=== PATIENT | female | born 1965 | race African-American/Black ===

== ENCOUNTER → 2017-03-30 | Outpatient (CLI) | payer OTHER ==
[~2017-03-30] MED LIST: CYCLOBENZAPRINE10 MG PO; IBUPROFEN 200200 M1 PO; NORCO 5-325 TA1 EACH PO; PRINIVIL20 M1 PO
== END ==
LOC: RAD 15:30
DX: Z12.31 Encounter for screening mammogram for malignant neoplasm of breast (principal)

== ENCOUNTER → 2018-05-31 | Outpatient (CLI) | payer BC | LOC: RAD 08:58 | DX: Z12.31 Encounter for screening mammogram for malignant neoplasm of breast (principal) ==

== ENCOUNTER → 2019-07-21 | Outpatient (CLI) | payer BC | LOC: BC 13:33 | DX: Z12.31 Encounter for screening mammogram for malignant neoplasm of breast (principal) ==

== ENCOUNTER → 2020-09-19 | Outpatient (CLI) | payer BC | LOC: BC 08:59 | PROVIDERS: ATTEND Family Medicine | DX: Z12.31 Encounter for screening mammogram for malignant neoplasm of breast (principal) ==